=== PATIENT | female | born 1985 | race Caucasian/White ===

== ENCOUNTER 2019-07-16 14:35 | Inpatient (IN) | payer BC ==
[~2019-07-16] VITALS: Ht 167.6 cm; Wt 93.6 kg
[2019-07-16] VITALS (35 sets, daily range): BP systolic 108–171; BP diastolic 56–90; PULSE 73–99; TEMP 98.3–98.6
--- NOTE | 2019-07-16 14:40 | NUR ---
Pt here with c/o leaking of fluid this AM and then spotting, pelvic pressure and back pain. G5L2. Pt to EFM, explained. SVE: amniotrace negative and cervix 3/50/-2. Bag of williamson palpated and bloody mucous noted. Assessment complete. VSS. Initially baseline was 150bpm with a spontaneous deceleration to 110bpm for 1 minute, then baseline decreases to 135-140bpm with moderate variability and unable to determine if having accels or decels at times. 1520:Dr. Reyna called and notified. Physician monitoring FHT's from the [facility] office. Orders to continue to monitor at this time. 1545:pt states she "feels leaking again" SVE, amniotrace negative. Bloody mucous plug noted. 1550:FHR baseline 130-135bpm, category 1 tracing then at 1602 3 questionable late decelerations noted and at 1615 cateogory 1 tracing. 1630:Dr Varela calls and updated on FHR tracing. Physician monitoring. Orders received to admit and induce at this time. Physician will be here to evaluate and AROM. 1636:Pt up to bathroom, void. IV started to left wrist x 1 attempt. Blood drawn from IV site then LR infusing without difficulty. Consents signed. 1645:pitocin started at 2mu. 1700:Dr Reyna here and at bedside. SVE: 3/50/-2. AROM, clear fluid. Pads changed and pt repositioned. Pt states she is feeling cramping. Physician reviews FHR monitor strip.
[2019-07-16] MEDS ORDERED: PRENATAL PO (14:58)
[2019-07-16 17:30] LABS: BASO % 0.2 % (0.0-2.0); EOS # 0.1 (0.0-0.7); EOS % 0.9 % (0-4.0); GRAN # 10.9 (1.4-6.5); GRAN % 79.3 % (42.2-75.2); HEMOGLOBIN 11.8 g/dl (12.5-16.0); LYMPH # 1.9 (1.2-3.4); LYMPH % 13.4 % (20.0-51.0); MEAN CELL VOLUME 88 fl (80.0-100.0); MEAN CORPUSCULAR HEMOGLOBIN 29 pg (27.0-31.0); MEAN CORPUSCULAR HGB CONC 33 g/dl (33.0-37.0); MONO # 0.7 (0.1-0.6); MONO % 5.4 % (1.7-9.3); PLATELET COUNT 201 K/mm3 (130-400); RED BLOOD COUNT 4.08 M/mm3 (4.10-5.30); REDCELL DISTRIBUTION WIDTH-CV 13.9 % (11.5-14.5)
[2019-07-16 17:33] LABS: HEMATOCRIT 35.8 % (37.0-47.0)
--- NOTE | 2019-07-16 18:15 | NUR ---
Bedside report. Nataly Cope RN at bedside and takes patient off monitors and up to bathroom. Patient then back to bed and monitors adjusted. This nurse will assume care of patient.
--- NOTE | 2019-07-16 19:08 | NUR ---
1908: Patient breathing controlled through contractions. Patient requesting an epidural at this time. Jeannine Murphy CRNA in hospital and called with patient request. LR bolus infusing.
--- NOTE | 2019-07-16 19:25 | NUR ---
192: Patient sitting up in bed for epidural placement. Jeannine Murphy COUNTERPERSON in room and epidural procedure explained. 1934: Epidural catheter placed. 1935: Epidural test dose given and no reaction to test dose. While patient in position for epidural FHR not tracing well. This nurse adjusting FHR monitor continuously. 1931: FHR tracing at 125 bpm. Epidural secured to patient back and patient repositioned, wedged right and resting in bed at 1940. FHR and contraction monitors adjusted and tracing well. See anesthesia records.
--- NOTE | 2019-07-16 19:50 | NUR ---
1950: HARRIET /-2. Patient feeling pain during contractions on her left side. Patient repositioned, wedged left and patient pushes epidural dose button.
--- NOTE | 2019-07-16 20:15 | NUR ---
Patient denies pain and comfortable with epidural.
--- NOTE | 2019-07-16 20:58 | NUR ---
Patient feeling vaginal pressure during contraction. SVE /0.
--- NOTE | 2019-07-16 21:35 | NUR ---
2134: SVE 10/100/+1. FHR and contraction monitors adjusted. Patient educated on proper pushing technique and prepped for delivery. 2139: Dr. De La Torre called to hospital for delivery.
--- NOTE | 2019-07-16 21:45 | NUR ---
2144: Kennedy catheter removed. 2149: Dr. Reyna in room for delivery. 2154: Patient begins pushing with contractions. 2157: Spontaneous vaginal delivery of infant head immediately followed by infant body. nose and mouth suctioned by Dr. Reyna and infant to mother abdomen where attended to by Marck Isabel RN. Pitocin off. umbilical cord clamped by Dr. Reyna and cut by father of baby. 2202: Spontaneous and intact delivery of placenta. Fundus massaged, firm, down 2 from umbilicus. Pitocin restarted at 333ml/hr. First degree perineal laceration repaired. Ice pack to perineum. Patient sitting up in bed holding infant. Parents very loving towards infant. EBL 200ml. See doctor dictation, labor and delivery summary and anesthesia records.
[2019-07-17] VITALS (8 sets, daily range): BP systolic 109–114; BP diastolic 58–71; PULSE 63–94; TEMP 97.7–98.3
--- NOTE | 2019-07-17 01:30 | NUR ---
Patient sitting up in bed, epidural catheter removed, blue tip intact and bandaid to site. IV to INT. Patient sitting on side of bed. Ambulates to bathroom with assist times 1 but ambulates independently. Patient able to void. Pericare taught and provided. New gown on. Patient ambulates to room 208 and oriented to room and call light. Patient resting in bed.
[2019-07-17] MEDS ORDERED: IBU800 M1 PO (09:15)
[2019-07-18 07:49] VITALS: BP 107/59; PULSE 77; TEMP 97.5
== END 2019-07-18 10:20 | disposition home or self-care (01) | DRG 807 ==
LOC: LDRO 14:35 → LDR 16:37 → OB 07-17 01:45
PROVIDERS: ADMIT Student in an Organized Health Care Education/Training Program
PROC: 10E0XZZ Delivery of Products of Conception, External Approach (ICD-10-PCS; principal; 2019-07-16)
PROC: 3E033VJ Introduction of Other Hormone into Peripheral Vein, Percutaneous Approach (ICD-10-PCS; 2019-07-16)
PROC: 10907ZC Drainage of Amniotic Fluid, Therapeutic from Products of Conception, Via Natural or Artificial Opening (ICD-10-PCS; 2019-07-16)
PROC: 0HQ9XZZ Repair Perineum Skin, External Approach (ICD-10-PCS; 2019-07-16)
DX: O76 Abnormality in fetal heart rate and rhythm complicating labor and delivery (principal); Z37.0 Single live birth; O36.63X0 Maternal care for excessive fetal growth, third trimester, not applicable or unspecified; Z3A.38 38 weeks gestation of pregnancy; O69.89X0 Labor and delivery complicated by other cord complications, not applicable or unspecified; O70.0 First degree perineal laceration during delivery; O34.523 Maternal care for prolapse of gravid uterus, third trimester
CPT/HCPCS: J2590; J7120